=== PATIENT | male | born 1980 | race Caucasian/White ===

== ENCOUNTER 2016-12-31 20:44 | Emergency (ER) | payer OTHER ==
[2016-12-31 20:56] VITALS: RESP 20
[2016-12-31] MEDS ORDERED: DiphenhydrAMINE 50 mg/ml Inj IVP STA ×2 (20:59→22:37)
[2016-12-31] MEDS ORDERED: Sodium Chloride 0.9% 1,000 ML IV ONE (21:00)
--- NOTE | 2016-12-31 21:00 | C.PDOC ---
History Of Present Illness Patient presents to the Ed with complaints of difficulty swallowing and diffuse rash on his lower extremities beginning this morning. Patient states he used benedryll at home with no relief and has no known etiology and denies any fever , chills, nausea, or vomiting. Time Seen by Provider: 12/31/16 20:59 Chief Complaint (Nursing): Allergic Reaction History Per: Patient History/Exam Limitations: no limitations Onset/Duration Of Symptoms: Hrs Current Symptoms Are (Timing): Still Present Possible Cause: Unknown Associated Symptoms: Skin Rash, Trouble Swallowing. denies: Dizziness, Chest Pain Home/EMS Treatment: Benadryl Severity: Mild Pain Scale Rating Of: 4 Recent travel outside of the [place]: No Past Medical History Reviewed: Historical Data, Nursing Documentation, Vital Signs Vital Signs: Last Vital Signs Temp 98.4 F 12/31/16 23:21 Pulse 85 12/31/16 23:21 Resp 20 12/31/16 23:21 BP 114/77 12/31/16 23:21 Pulse Ox 99 12/31/16 23:21 - Medical History PMH: Diverticulitis Family History: States: Unknown Family Hx - Social History Hx Tobacco Use: Yes (2cigs daily) Hx Alcohol Use: Yes Hx Substance Use: Yes (marijuana) - Immunization History Hx Tetanus Toxoid Vaccination: No Hx Influenza Vaccination: Yes Hx Pneumococcal Vaccination: No Review Of Systems Constitutional: Negative for: Fever, Chills, Sweats ENT: Positive for: Other (difficulty swallowing ) Cardiovascular: Negative for: Chest Pain, Palpitations Respiratory: Negative for: Cough, Shortness of Breath Gastrointestinal: Negative for: Nausea, Vomiting, Abdominal Pain, Diarrhea Skin: Positive for: Rash (diffuse rash on lower extremities ) Physical Exam - Physical Exam Appears: Non-toxic, No Acute Distress Skin: Warm, Dry, Rash (diffuse urticarial rash on lower extremities ) Head: Atraumatic Eye(s): bilateral: Normal Inspection Oral Mucosa: Moist Tongue: Normal Appearing, No Swelling Lips: Normal Appearing, No Swelling Throat: Normal, No Erythema, Other (Clear oropharynx) Neck: Supple Chest: Symmetrical, No Deformity Cardiovascular: Rhythm Regular Respiratory: No Rales, No Rhonchi, No Stridor, No Wheezing Gastrointestinal/Abdominal: Soft, No Tenderness, No Distention, No Guarding, No Rebound Extremity: Normal ROM, No Tenderness Neurological/Psych: Oriented x3 ED Course And Treatment O2 Sat by Pulse Oximetry: 97 (room air ) Pulse Ox Interpretation: Normal Reevaluation Time: 00:07 Reassessment Condition: Improved Critical Care Time - Critical Care Note Total Time (in mins): 30 Documented critical care: time excludes all time spent performing seperately billable procedures. Medical Decision Making Medical Decision Making: Upon provider reevaluation patient is feeling better, is medically stable, and requires no further treatment in the ED at this time. Patient will be discharged home with Rx for epipen, prednisone, benadryl, pepcid, and claritin. Counseling was provided and all questions were answered regarding diagnosis and need for follow up with naveen loaiza. There is agreement to discharge plan. Return if symptoms persist or worsen. Disposition Counseled Patient/Family Regarding: Studies Performed, Diagnosis, Need For Followup - Disposition Referrals: Magdiel Loaiza DO [Staff Provider] - Disposition: HOME/ ROUTINE Disposition Time: 20:59 Condition: FAIR Additional Instructions: Please also use benadryl, pepcid and claritin Prescriptions: Epinephrine [Epipen] 0.3 mg IJ ONCE PRN #1 PRN Reason: Anaphylaxis Prednisone [Deltasone] 20 mg PO DAILY #5 tablet Instructions: General Allergic Reaction (ED) - Clinical Impression Clinical Impression: Allergic urticaria - Scribe Statement The provider has reviewed the documentation as recorded by the Scribange Marie All medical record entries made by the Perlaibe were at my direction and personally dictated by me. I have reviewed the chart and agree that the record accurately reflects my personal performance of the history, physical exam, medical decision making, and the department course for this patient. I have also personally directed, reviewed, and agree with the discharge instructions and disposition.
[2016-12-31] MEDS ORDERED: Sodium Chloride 0.9% 1,000 ML ONE (21:09)
[2016-12-31] MEDS ORDERED: DiphenhydrAMINE 50 mg/ml Inj ONE ×2 (21:09→22:35)
[2016-12-31 23:24] VITALS: BP 114/77; PULSE 85; TEMP 98.4
[2017-01-01 00:10] VITALS: O2SAT 97
== END 2017-01-01 00:14 | disposition home or self-care (01) ==
LOC: C.ER 20:44
DX: L50.0 Allergic urticaria (principal)
CPT/HCPCS: 96361; 96374; 96375; 96376; 99284; J1200; J2930; J7040